=== PATIENT | female | born 1985 | race Caucasian/White ===

== ENCOUNTER 2022-07-27 07:07 | Emergency (ER) | payer MEDICAID ==
[~2022-07-27] VITALS: Ht 170.2 cm; Wt 73.0 kg
[2022-07-27 07:19] VITALS: BP 115/59
[2022-07-27] MEDS ORDERED: ALBU6.7H3 INH ×2 (09:01)
[2022-07-27] MEDS ORDERED: ACETAMINOPHEN 325MG TABLET PO ONE (10:30)
[2022-07-27 10:31] LABS: CHLORIDE 111 mEq/L (98-107)
[2022-07-27 10:32] LABS: BASOPHILS % 0.3 % (0.0-2.0); EOSINOPHILS % 0.3 % (0.0-5.0); HEMATOCRIT. 43.4 % (36.0-48.0); HEMOGLOBIN. 14.1 g/dL (12.0-16.0); LYMPHOCYTES % 17.4 % (20.0-50.0); MEAN CORPUSCULAR HEMOGLOBIN 27.9 pg (28.0-32.0); MEAN CORPUSCULAR VOLUME 85.8 fL (81.0-99.0); MEAN PLATELET VOLUME 8.5 fl (7.4-10.4); MONOCYTES % 4.4 % (2.0-8.0); NEUTROPHILS % 77.6 % (40.0-76.0); PLATELET 311 x1000/uL (130-400); RED BLOOD CELL COUNT 5.06 mill/uL (4.2-5.4); RED CELL DISTRIBUTION WIDTH 14.5 % (11.6-14.6)
[2022-07-27 10:53] LABS: CLARITY URINE CLOUDY (CLEAR); COLOR URINE YELLOW (YELLOW); KETONES URINE NEGATIVE (NEGATIVE); LEUKOCYTE ESTERASE URINE 1+ (NEGATIVE); NITRITE URINE NEGATIVE (NEGATIVE); OCCULT BLOOD URINE NEGATIVE (NEGATIVE); PROTEIN URINE NEGATIVE (NEGATIVE); SPECIFIC GRAVITY URINE 1.017 (1.005-1.030); UROBILINOGEN URINE 0.2 E.U./dL (0.2-1.0)
[2022-07-27] MEDS ORDERED: PNV1TABL76 PO (11:24)
[2022-07-27] MEDS ORDERED: TOPUD PO (11:24)
[2022-07-27 11:33] LABS: B-HCG QUANTITATIVE 4131 mIU/mL (<3)
[2022-07-27] MEDS ORDERED: NITR100C PO (11:49)
== END 2022-07-27 12:04 | disposition home or self-care (01) ==
LOC: ER 07:07
DX: M54.59 Other low back pain (principal); M54.2 Cervicalgia; G89.11 Acute pain due to trauma; V49.49XA Driver injured in collision with other motor vehicles in traffic accident, initial encounter; O23.41 Unspecified infection of urinary tract in pregnancy, first trimester; N39.0 Urinary tract infection, site not specified; Z3A.01 Less than 8 weeks gestation of pregnancy; O09.521 Supervision of elderly multigravida, first trimester; Y93.89 Activity, other specified; Y92.488 Other paved roadways as the place of occurrence of the external cause
CPT/HCPCS: 36415; 76801; 80053; 81003; 81025; 84702; 85025; 86850; 86900; 99284

== ENCOUNTER 2025-08-07 11:40 | Emergency (ER) | payer MEDICAID, OTHER ==
[~2025-08-07] VITALS: Ht 165.1 cm; Wt 80.0 kg
[~2025-08-07 11:40] MED LIST: NITR100C PO; PNV1TABL76 PO; TOPUD PO
[2025-08-07 11:48] VITALS: O2SAT 96
[2025-08-07 12:37] LABS: BASOPHILS % 0.4 % (0.0-2.0); EOSINOPHILS % 1.0 % (0.0-5.0); HEMATOCRIT. 43.3 % (36.0-48.0); HEMOGLOBIN. 14.5 g/dL (12.0-16.0); LYMPHOCYTES % 19.5 % (20.0-50.0); MEAN PLATELET VOLUME 8.4 fl (7.4-10.4); MONOCYTES % 5.9 % (2.0-8.0); NEUTROPHILS % 73.2 % (40.0-76.0); PLATELET 275 x1000/uL (130-400); RED BLOOD CELL COUNT 5.22 mill/uL (4.2-5.4); RED CELL DISTRIBUTION WIDTH 13.9 % (11.6-14.6)
[2025-08-07 13:01] LABS: CREATININE 0.7 mg/dL (0.6-1.0); UREA NITROGEN BLOOD 8 mg/dL (9-23)
[2025-08-07 13:02] LABS: PROTEIN TOTAL 6.9 g/dL (6.0-8.3); TROPONIN I HIGH SENSITIVITY < 4 ng/L (3.0-34)
[2025-08-07 13:03] LABS: ASPARTATE AMINOTRANSFERASE 24 IU/L (<34); BILIRUBIN DIRECT 0.1 mg/dL (<=3.0); BILIRUBIN TOTAL 0.4 mg/dL (0.1-1.0)
[2025-08-07 14:02] VITALS: BP 101/60; PULSE 72; RESP 15; TEMP 37.1; O2SAT 96
== END 2025-08-07 14:05 | disposition home or self-care (01) ==
LOC: ER 11:40
DX: R00.2 Palpitations (principal)
CPT/HCPCS: 36415; 71045; 80048; 80076; 81025; 84484; 85025; 93005; 99285